=== PATIENT | male | born 1970 | race Caucasian/White ===

== ENCOUNTER 2017-01-04 21:34 | Emergency (ER) | payer MEDICAID ==
[2017-01-04 21:34] VITALS: BMI 32.3
[2017-01-04 22:15] VITALS: BP 150/95; PULSE 66; RESP 16; TEMP 99.2; O2SAT 98
[2017-01-04] MEDS ORDERED: Sodium Chloride 0.9% 1,000 ML IV STA (22:32)
--- NOTE | 2017-01-04 22:35 | ED PDOC ---
HPI: Back Time Seen by Provider: 01/04/17 22:32 Chief Complaint (Nursing): Back Pain Chief Complaint (Provider): back pain with hematuria History Per: Patient History/Exam Limitations: no limitations Onset/Duration Of Symptoms: Days (3) Current Symptoms Are (Timing): Still Present Previous Symptoms: Back Pain (b/l back pain) Associated Symptoms: Other (hematuria and abd pain suprapubic) Exacerbating Factor(s): Movement - Risk Factors AAA Risk Factors: Neg: Older Than 49 Years Of Age, Hypertension, Connective Tissue Disease, Marfan's Syndrome, Theodore-Danlos Syndrome, Prior AAA, 1st Degree Relative/s With AAA Past Medical History Reviewed: Historical Data, Nursing Documentation, Vital Signs Vital Signs: Last Vital Signs Temp 99.2 F 01/04/17 22:11 Pulse 66 01/04/17 22:11 Resp 16 01/04/17 22:11 BP 150/95 H 01/04/17 22:11 Pulse Ox 98 01/04/17 22:11 - Medical History PMH: Back Problems (chronic pain) Denies: Chronic Kidney Disease - Surgical History Surgical History: Appendectomy - Family History Family History: States: Unknown Family Hx - Immunization History Hx Tetanus Toxoid Vaccination: No Hx Influenza Vaccination: No Hx Pneumococcal Vaccination: No - Home Medications Home Medications: Ambulatory Orders Medication Instructions Recorded Ciprofloxacin [Cipro] 250 mg PO BID #14 tab 01/04/17 Ketorolac Tromethamine [Toradol] 10 mg PO TID #20 cap 01/04/17 - Allergies Allergies/Adverse Reactions: Allergies Allergy/AdvReac Type Severity Reaction Status Date / Time No Known Allergies Allergy Verified 07/29/15 07:22 Review of Systems ROS Statement: Except As Marked, All Systems Reviewed And Found Negative Constitutional: Positive for: Chills. Negative for: Fever Gastrointestinal: Positive for: Nausea, Abdominal Pain. Negative for: Vomiting Genitourinary Male: Positive for: Dysuria, Frequency, Hematuria Physical Exam - Reviewed Nursing Documentation Reviewed: Yes Vital Signs Reviewed: Yes - Physical Exam Appears: Positive for: Non-toxic, No Acute Distress, Uncomfortable Head Exam: Positive for: ATRAUMATIC, NORMAL INSPECTION, NORMOCEPHALIC Skin: Positive for: Normal Color, Warm, DRY Cardiovascular/Chest: Positive for: Regular Rate, Rhythm Respiratory: Positive for: CNT, Normal Breath Sounds Gastrointestinal/Abdominal: Positive for: Normal Exam, Bowel Sounds, Soft, Tenderness (suprapubic tenderness) Back: Positive for: L CVA Tenderness, R CVA Tenderness Extremity: Positive for: Normal ROM Neurologic/Psych: Positive for: Alert, Oriented - Laboratory Results Result Diagrams: 01/04/17 22:51 01/04/17 22:51 - ECG O2 Sat by Pulse Oximetry: 98 - Progress ED Course And Treament: UA/ct of abd r/o renal stone cbc/cmp torodol and NS fluids ct scan: 1. Low attenuation lesion in the right hepatic lobe, incompletely characterized on this exam but unchanged. 2. Gallbladder wall is thickened. Small stones are seen in the gallbladder neck. Findings are concerning for acute cholecystitis. 3. Moderate fecal retention in the colon consistent with constipation. 4. Bladder wall is mildly prominent in thickness which may be due to its decompressed state or due to cystitis. 5. Mesenteric lymphadenopathy which is unchanged in indeterminate. Largest lymph node measures 2.8 x 1.6 cm. pt without elvated liver enzymes and no complaints of RUQ/epigastric pain/ vomiting or upper back pain Medical Decision Making Medical Decision Making: blood noted in urine, however no renal stone note don CT scan. GC test sent to r/o STI. pt will be given cipro and cx sent advised to f.u with urology for prostate exam pt will be given torodol PO for pain . stable VS upone d/c Disposition - Clinical Impression Clinical Impression: Cystitis - Patient ED Disposition Is Patient to be Admitted: No Counseled Patient/Family Regarding: Studies Performed, Diagnosis, Need For Followup, Rx Given - Disposition Referrals: [facility] [Outside] Yumiko Conde MD [Medical Doctor] - Disposition: Routine/Home Disposition Time: 23:41 Condition: STABLE Prescriptions: Ciprofloxacin [Cipro] 250 mg PO BID #14 tab Ketorolac Tromethamine [Toradol] 10 mg PO TID #20 cap Instructions: Urinary Tract Infection in Men (ED) Forms: [employer] (Macedonian) Print Language: VIETNAMESE
[2017-01-04 22:50] LABS: SQUAMOUS EPITHIAL 1 /hpf (0-5); URINE BILIRUBIN NEGATIVE (NEGATIVE); URINE BLOOD NEGATIVE (NEGATIVE); URINE CLARITY CLEAR (Clear); URINE COLOR YELLOW (YELLOW); URINE GLUCOSE (UA) NEG (Normal); URINE LEUKOCYTE ESTERASE NEG Leu/uL (Negative); URINE NITRATE NEGATIVE (NEGATIVE); URINE PROTEIN NEGATIVE (NEGATIVE); URINE UROBILINOGEN 0.2-1.0 mg/dL (0.2-1.0)
[2017-01-04 22:56] LABS: BASO # 0.1 K/uL (0.0-0.2); BASO % 1.2 % (0.0-2.0); EOS # 0.1 K/uL (0.0-0.7); EOS % 1.4 % (0.0-4.0); HEMOGLOBIN 14.6 g/dL (12.0-18.0); LYMPH # 2.8 K/uL (1.0-4.3); LYMPH % 35.2 % (20.0-40.0); MEAN CELL VOLUME 89.8 fl (80.0-94.0); MEAN CORPUSCULAR HEMOGLOBIN 30.3 pg (27.0-31.0); MEAN CORPUSCULAR HGB CONC 33.8 g/dL (33.0-37.0); MEAN PLATELET VOLUME 8.5 fl (7.2-11.7); MONO # 0.7 K/uL (0.0-0.8); MONO % 9.2 % (0.0-10.0); NEUT # 4.3 K/uL (1.8-7.0); NRBC % 0.1 % (0.0-0.0); RBC 4.8 Mil/uL (4.40-5.90); RED CELL DISTRIBUTION WIDTH 13.3 % (11.5-14.5)
[2017-01-04 23:05] LABS: ALB/GLOB RATIO 1.4 (1.0-2.1); ALBUMIN 4.7 g/dL (3.5-5.0); ALT/SGPT 44 U/L (21-72); AST/SGOT 44 U/L (17-59); BLOOD UREA NITROGEN 21 mg/dl (9-20); CALCIUM 9.4 mg/dL (8.4-10.2); GFR AFRICAN-AMERICAN > 60; GFR NON-AFRICAN AMERICAN > 60
--- NOTE | 2017-01-05 00:01 | CT ---
EXAM: CT Abdomen and Pelvis Without Intravenous Contrast CLINICAL HISTORY: 46 years old, male; Pain; Abdominal pain; Other: Bilat. Back pain; Prior surgery; Surgery date: 6+ months; Surgery type: Append. Removed; Additional info: CVA tenderness b/l TECHNIQUE: Axial computed tomography images of the abdomen and pelvis without intravenous contrast. This CT exam was performed using one or more of the following dose reduction techniques: automated exposure control, adjustment of the mA and/or kV according to patient size, and/or use of iterative reconstruction technique. Coronal and sagittal reformatted images were created and reviewed. COMPARISON: None FINDINGS: Lower thorax: The bilateral lung bases are clear. ABDOMEN: Liver: No acute findings Gallbladder and bile ducts: No acute finding. No calcified stones. No intra-extrahepatic biliary ductal dilation. Pancreas: Limited evaluation secondary to the lack of intravenous contrast. Spleen: No acute findings. Adrenals: No acute findings. Kidneys and ureters: No obstructing stones. No hydronephrosis. PELVIS: Bladder: No acute findings. Reproductive: No acute findings. Appendix: The appendix is not definitively visualized, however no pericecal inflammatory changes identified to suggest the presence of acute appendicitis. ABDOMEN and PELVIS: Stomach and bowel: No acute findings. Rectosigmoid diverticulosis is detected, without evidence of diverticulitis. Peritoneum: No acute findings. Lymph nodes: Limited evaluation without intravenous contrast. Vasculature: No aortic aneurysm. Bones: No acute fracture. IMPRESSION: No obstructive uropathy. Diverticulosis, without inflammation.
== END 2017-01-04 23:42 | disposition home or self-care (01) ==
LOC: H.ER 21:34
DX: N39.0 Urinary tract infection, site not specified (principal); I10 Essential (primary) hypertension

== ENCOUNTER 2018-04-03 10:40 | Observation (INO) | payer MEDICAID ==
[2018-04-03 10:46] VITALS: BMI 32.5
--- NOTE | 2018-04-03 11:08 | ED PDOC ---
HPI: Chest Pain Time Seen by Provider: 04/03/18 10:54 Chief Complaint (Nursing): Chest Pain Chief Complaint (Provider): Chest pain History Per: Patient History/Exam Limitations: no limitations Onset/Duration Of Symptoms: Hrs (this morning) Quality: Burning, Tightness Associated Symptoms: denies: Dyspnea Additional Complaint(s): Barney Pabon is a 47 year old male, with a past medical history of hypercholesterolemia, who presents to the emergency department for evaluation of chest pain onset this morning. Patient reports a burning sensation and chest tightness across chest into left shoulder and radiates down the left arm. Pain is not associated with exertion. Patient states symptoms improved after he laid down but recurred. He denies any dizziness, palpitations, shortness of breath, fever or chills. No further medical complaints. PMD: [facility] Past Medical History Reviewed: Historical Data, Nursing Documentation, Vital Signs Vital Signs: Last Vital Signs Temp 98.4 F 04/03/18 10:46 Pulse 55 L 04/03/18 10:46 Resp 17 04/03/18 10:46 BP 157/88 H 04/03/18 10:46 Pulse Ox 97 04/03/18 10:46 - Medical History PMH: Back Problems (chronic pain), Hypercholesterolemia Denies: Chronic Kidney Disease - Surgical History Surgical History: Appendectomy - Family History Family History: States: Unknown Family Hx - Social History Current smoker - smoking cessation education provided: No Alcohol: None Drugs: Denies - Immunization History Hx Tetanus Toxoid Vaccination: No Hx Influenza Vaccination: No Hx Pneumococcal Vaccination: No - Home Medications Home Medications: Ambulatory Orders Medication Instructions Recorded Ciprofloxacin [Cipro] 250 mg PO BID #14 tab 01/04/17 Ketorolac Tromethamine [Toradol] 10 mg PO TID #20 cap 01/04/17 - Allergies Allergies/Adverse Reactions: Allergies Allergy/AdvReac Type Severity Reaction Status Date / Time No Known Allergies Allergy Verified 07/29/15 07:22 Review of Systems ROS Statement: Except As Marked, All Systems Reviewed And Found Negative Constitutional: Negative for: Fever, Chills Cardiovascular: Positive for: Chest Pain (radiates to left shoulder and down the arm). Negative for: Palpitations Respiratory: Negative for: Shortness of Breath Neurological: Negative for: Dizziness Physical Exam - Reviewed Nursing Documentation Reviewed: Yes Vital Signs Reviewed: Yes - Physical Exam Appears: Positive for: No Acute Distress Head Exam: Positive for: ATRAUMATIC, NORMAL INSPECTION, NORMOCEPHALIC Skin: Positive for: Normal Color, Warm, Dry Eye Exam: Positive for: Normal appearance, EOMI, PERRL Neck: Positive for: Normal, Painless ROM Cardiovascular/Chest: Positive for: Regular Rate, Rhythm, Chest Non Tender (No chest wall tenderness). Negative for: Murmur Respiratory: Positive for: Normal Breath Sounds. Negative for: Respiratory Di stress Gastrointestinal/Abdominal: Positive for: Normal Exam, Soft. Negative for: Tenderness, Guarding, Rebound Back: Positive for: Normal Inspection. Negative for: L CVA Tenderness, R CVA Tenderness, Vertebral Tenderness Extremity: Positive for: Normal ROM (upper and lower extremities). Negative for: Calf Tenderness, Deformity, Swelling Neurologic/Psych: Positive for: Alert, Oriented. Negative for: Motor/Sensory Deficits - Laboratory Results Result Diagrams: 04/03/18 11:35 04/03/18 12:16 - ECG O2 Sat by Pulse Oximetry: 97 (RA) Pulse Ox Interpretation: Normal Medical Decision Making Medical Decision Making: Time: 10:54 Initial Impression: Chest pain Initial Plan: --CMP --Troponin I --CBC w/ differential --Chest two views (PA/LAT) [RAD] --Aspirin 325 mg PO --Reevaluation Scribe Attestation: Documented by Luis Stark, acting as a scribe for Aleksandr Huynh MD. Provider Scribe Attestation: All medical record entries made by the Scribe were at my direction and personally dictated by me. I have reviewed the chart and agree that the record accurately reflects my personal performance of the history, physical exam, medical decision making, and the department course for this patient. I have also personally directed, reviewed, and agree with the discharge instructions and disposition. Disposition - Clinical Impression Clinical Impression: Chest pain - Patient ED Disposition Is Patient to be Admitted: Yes - Disposition Disposition Time: 12:40 Condition: FAIR Forms: [facility] (German) - Pt Status Changed To: Hospital Disposition Of: Observation - POA Present On Arrival: None
[2018-04-03 11:59] LABS: BASO % 0.7 % (0.0-2.0); EOS # 0.1 K/uL (0.0-0.7); EOS % 1.7 % (0.0-4.0); HEMOGLOBIN 14.4 g/dL (12.0-18.0); LYMPH # 2.4 K/uL (1.0-4.3); LYMPH % 41.6 % (20.0-40.0); MEAN CELL VOLUME 91.9 fl (80.0-94.0); MEAN CORPUSCULAR HEMOGLOBIN 30.4 pg (27.0-31.0); MEAN PLATELET VOLUME 9.2 fl (7.2-11.7); MONO # 0.5 K/uL (0.0-0.8); MONO % 7.8 % (0.0-10.0); NEUT # 2.8 K/uL (1.8-7.0); NEUT % 48.2 % (50.0-75.0); NRBC % 0.1 % (0.0-0.0); RBC 4.73 Mil/uL (4.40-5.90); RED CELL DISTRIBUTION WIDTH 13.1 % (11.5-14.5); WHITE BLOOD COUNT 5.8 K/uL (4.8-10.8)
[2018-04-03 12:41] LABS: ALB/GLOB RATIO 1.2 (1.0-2.1); ALBUMIN 4.6 g/dL (3.5-5.0); ALT/SGPT 49 U/L (21-72); AST/SGOT 31 U/L (17-59); BLOOD UREA NITROGEN 14 mg/dl (9-20); GFR NON-AFRICAN AMERICAN > 60
--- NOTE | 2018-04-03 14:38 | RAD ---
Date of service: 04/03/2018 HISTORY: Chest pain COMPARISON: Chest radiographs 07/29/2015. TECHNIQUE: Chest PA and lateral FINDINGS: LUNGS: No active pulmonary disease. PLEURA: No significant pleural effusion identified. No pneumothorax apparent. CARDIOVASCULAR: No aortic atherosclerotic calcification present. Normal cardiac size. No pulmonary vascular congestion. OSSEOUS STRUCTURES: No significant abnormalities. VISUALIZED UPPER ABDOMEN: Normal. OTHER FINDINGS: None. IMPRESSION: No interval acute cardiopulmonary disease appreciated.
[2018-04-03 17:55] LABS: PROTHROMBIN TIME 11.8 Seconds (9.8-13.1)
[2018-04-03 17:58] LABS: PARTIAL THROMBOPLASTIN TIME 30.3 Seconds (25.6-37.1)
[2018-04-03 18:18] LABS: D DIMER < 200 ng/mlDDU (0-230)
[2018-04-03 19:55] LABS: BARBITURATES, UR NEGATIVE (NEGATIVE); BENZODIAZEPINES, UR NEGATIVE (NEGATIVE); OPIATES, UR NEGATIVE (NEGATIVE); PHENCYCLIDINE, UR NEGATIVE (NEGATIVE)
[2018-04-03] MEDS: Omega-3-Acid Ethyl Esters 1 GM Cap PO SCH (21:30)
[2018-04-03] MEDS: Enoxaparin 100 mg Syringe SC SCH (21:31)
[2018-04-03] MEDS ORDERED: Pneumococcal 23-Valent Vaccine IM ONE (23:19)
--- NOTE | 2018-04-04 07:23 | CON ---
DATE: 04/03/2018 HISTORY OF PRESENT ILLNESS: The patient is a 47-year-old male who has no significant past medical history, presents because of retrosternal chest pain radiating to the left shoulder and left arm last evening and subsequently waking him up from sleep after midnight. The patient did report retrosternal burning sensation prior to that. Denies any associated diaphoresis and is unaware of any prior cardiac history. SOCIAL HISTORY: The patient is a nonsmoker, nondrinker. MEDICATIONS: The patient received aspirin 325 mg in the emergency room. He is on omega-3 fatty acid and Lipitor at home for hyperlipidemia. REVIEW OF SYSTEMS: No fever or chills. No nausea or vomiting. PHYSICAL EXAMINATION: GENERAL: The patient is a middle-aged male who does not appear to be in acute distress. VITAL SIGNS: Blood pressure 157/88, heart rate 55, temperature 98.4, respirations 17. HEENT: Normocephalic. NECK: No JVD. CHEST: Clear. HEART: S1 and S2 regular. ABDOMEN: Soft. EXTREMITIES: No edema. IMAGING DATA: EKG reveals normal sinus rhythm. LABORATORY DATA: Today's SMA-7 is within normal limit. One set of troponin is negative. Today's hemoglobin and hematocrit, white count and platelet count are within normal limit. Chest x-ray was unremarkable. ASSESSMENT: 1. Chest pain, myocardial infarction was ruled out. 2. Hyperlipidemia. 3. Hypertension. RECOMMENDATIONS: Admit the patient to Telemetry. Start subcutaneous Lovenox and start aspirin 81 mg once a day, Plavix 75 mg once a day. Obtain serum D-dimer as well as . Schedule the patient for an echocardiogram. Cardiac catheterization will be considered. Nestor Vieira MD
--- NOTE | 2018-04-04 10:32 | CP.PCM.HP ---
History of Present Illness - History of Present Illness History of Present Illness: 47 y/o M with a PMHx of HLD presented to ED complaining of sudden constant severe chest pain that started yesterday morning. Pt described pain as tightness bellow his chest that radiated to L arm. Pain seemed to alleviate after lying d own. No ill contacts. No recent travel. Pt denies fever, chills, dizziness, SOB, wheezing or nausea. --Today, pt was evaluated and examined by bedside with Dr Patton. Pt reports feeling better, no more chest pain at this moment, he described episode of pain scared him significantly. Pt afebrile, tolerating PO. PMD: [facility] ED [place]: -CBC was WNL, CMP unremarkable, troponin negative x3, UDS negative. -CXR-no acute cardiopulmonary disease appreciate. -EKG-preliminary: NSR at 60bpm, normal EKG Present on Admission - Present on Admission Any Indicators Present on Admission: No Review of Systems - Constitutional Constitutional: absent: Anorexia, Chills - EENT Eyes: absent: Change in Vision Nose/Mouth/Throat: absent: Nasal Congestion, Sore Throat, Neck Pain - Cardiovascular Cardiovascular: Chest Pain. absent: Chest Pain at Rest, Leg Edema, Palpitations, Paroxysmal Nocturnal Dyspnea - Respiratory Respiratory: absent: Cough, Dyspnea, Hemoptysis - Gastrointestinal Gastrointestinal: absent: Abdominal Pain, Diarrhea, Hematemesis, Hematochezia - Genitourinary Genitourinary: absent: Dysuria, Flank Pain, Hematuria Past Patient History - Past Medical History & Family History Past Medical History?: Yes - Past Social History Smoking Status: Never Smoked - CARDIAC Hx Hypercholesterolemia: Yes - PULMONARY Hx Respiratory Disorders: No - NEUROLOGICAL Hx Neurological Disorder: No - HEENT Hx HEENT Problems: No - RENAL Hx Chronic Kidney Disease: No - ENDOCRINE/METABOLIC Hx Endocrine Disorders: No - HEMATOLOGICAL/ONCOLOGICAL Hx Blood Disorders: No Hx AIDS: No Hx Human Immunodeficiency Virus (HIV): No - INTEGUMENTARY Hx Dermatological Problems: No - MUSCULOSKELETAL/RHEUMATOLOGICAL Hx Musculoskeletal Disorders: No Hx Falls: No - GASTROINTESTINAL Hx Gastrointestinal Disorders: No - GENITOURINARY/GYNECOLOGICAL Hx Genitourinary Disorders: Yes Other/Comment: urethral stricture - PSYCHIATRIC Hx Psychophysiologic Disorder: No Hx Substance Use: No - SURGICAL HISTORY Hx Appendectomy: Yes - ANESTHESIA Hx Anesthesia: Yes Hx Anesthesia Reactions: No Hx Malignant Hyperthermia: No Meds Allergies/Adverse Reactions: Allergies Allergy/AdvReac Type Severity Reaction Status Date / Time No Known Allergies Allergy Verified 07/29/15 07:22 Physical Exam - Constitutional Appears: Well, No Acute Distress - Head Exam Head Exam: ATRAUMATIC, NORMAL INSPECTION - Eye Exam Eye Exam: EOMI, Normal appearance - ENT Exam ENT Exam: Mucous Membranes Dry, Normal Oropharynx - Neck Exam Neck exam: Positive for: Full Rom. Negative for: Lymphadenopathy, Tenderness - Respiratory Exam Respiratory Exam: NORMAL BREATHING PATTERN. absent: Rhonchi, Wheezes - Cardiovascular Exam Cardiovascular Exam: REGULAR RHYTHM, +S1, +S2 - GI/Abdominal Exam GI & Abdominal Exam: Normal Bowel Sounds, Soft. absent: Tenderness - Extremities Exam Extremities exam: Positive for: full ROM, normal inspection. Negative for: calf tenderness, joint swelling, pedal edema - Back Exam Back exam: absent: CVA tenderness (L), CVA tenderness (R) - Neurological Exam Neurological exam: Alert, Oriented x3 Results - Vital Signs Recent Vital Signs: Last Vital Signs Temp 97.8 F 04/04/18 08:00 Pulse 63 04/04/18 08:00 Resp 18 04/04/18 08:00 BP 133/85 04/04/18 08:00 Pulse Ox 97 04/04/18 08:00 - Labs Result Diagrams: 04/03/18 11:35 04/03/18 12:16 Labs: Laboratory Results - last 24 hr 04/03/18 04/03/18 04/03/18 11:35 12:16 17:30 WBC 5.8 RBC 4.73 Hgb 14.4 Hct 43.5 MCV 91.9 D MCH 30.4 MCHC 33.0 RDW 13.1 Plt Count 201 MPV 9.2 Neut % (Auto) 48.2 L Lymph % (Auto) 41.6 H [place] % (Auto) 7.8 Eos % (Auto) 1.7 Baso % (Auto) 0.7 Neut # (Auto) 2.8 Lymph # (Auto) 2.4 [place] # (Auto) 0.5 Eos # (Auto) 0.1 Baso # (Auto) 0.0 PT 11.8 INR 1.0 APTT 30.3 D-Dimer, Quantitative < 200 Sodium 141 Potassium 4.2 Chloride 106 Carbon Dioxide 23 Anion Gap 16 BUN 14 Creatinine 0.8 Est GFR ( Amer) > 60 Est GFR (Non-Af Amer) > 60 Random Glucose 91 Calcium 10.0 Total Bilirubin 0.7 AST 31 ALT 49 Alkaline Phosphatase 62 Troponin I < 0.0120 Total Protein 8.5 H Albumin 4.6 Globulin 3.8 Albumin/Globulin Ratio 1.2 Urine Opiates Screen Urine Methadone Screen Ur Barbiturates Screen Ur Phencyclidine Scrn Ur Amphetamines Screen U Benzodiazepines Scrn U Oth Cocaine Metabols U Cannabinoids Screen 04/03/18 04/03/18 04/04/18 19:20 19:59 04:20 WBC RBC Hgb Hct MCV MCH MCHC RDW Plt Count MPV Neut % (Auto) Lymph % (Auto) [place] % (Auto) Eos % (Auto) Baso % (Auto) Neut # (Auto) Lymph # (Auto) [place] # (Auto) Eos # (Auto) Baso # (Auto) PT INR APTT D-Dimer, Quantitative Sodium Potassium Chloride Carbon Dioxide Anion Gap BUN Creatinine Est GFR ( Amer) Est GFR (Non-Af Amer) Random Glucose Calcium Total Bilirubin AST ALT Alkaline Phosphatase Troponin I < 0.0120 < 0.0120 Total Protein Albumin Globulin Albumin/Globulin Ratio Urine Opiates Screen Negative Urine Methadone Screen Negative Ur Barbiturates Screen Negative Ur Phencyclidine Scrn Negative Ur Amphetamines Screen Negative U Benzodiazepines Scrn Negative U Oth Cocaine Metabols Negative U Cannabinoids Screen Negative Assessment & Plan - Assessment and Plan (Free Text) Assessment: 47 y/o M with a PMHx HLD admitted for evaluation of chest pain, rule out acute coronary syndrome. PLAN: --Bradycardia, afebrile, tolerating PO --Aspirin PO daily --Echocardiogram --Serum TSH due to bradycardia and obesity. --Cardiology consult, Dr Vieira. --Home medication resumed. --Pneumo vaccine --Continue management as ordered. Case discussed with Dr Abdi Chou, PGY-2
[2018-04-04] MEDS: Multivitamin With Minerals Tab PO SCH (10:43)
[2018-04-04] MEDS: Omega-3-Acid Ethyl Esters 1 GM Cap PO SCH ×2 (10:43→17:02)
[2018-04-04] MEDS: Enoxaparin 100 mg Syringe SC SCH (10:43)
--- NOTE | 2018-04-04 17:23 | PN ---
DATE: 04/04/2018 SUBJECTIVE: The patient denied any chest pain or arm pain, no dizziness or diaphoresis. PHYSICAL EXAMINATION VITAL SIGNS: Blood pressure 132/85, heart rate 63, temperature 97.8, respirations 18. HEENT: Normocephalic. CHEST: Clear. HEART: S1, S2 regular. EXTREMITIES: No edema. LABORATORY DATA: Three sets of troponin are negative and D-dimer also within normal limits. Urine drug screen is negative. ASSESSMENT AND PLAN: 1. Chest pain, myocardial function is ruled out. 2. Hypertension. 3. Hyperlipidemia. RECOMMENDATIONS: Continue current aspirin 81 mg once daily, Lipitor 80 mg once a day. The patient will undergo echocardiographc study, which I will review today prior to scheduling the patient for either stress test or cardiac cath. Nestor Vieira MD
--- NOTE | 2018-04-04 18:21 | CARD ---
APPROVED REPORT Date of service: 04/04/2018 EXAM: Two-dimensional and M-mode echocardiogram with Doppler and color Doppler. Other Information Quality : GoodRhythm : NSR INDICATION Chest Pain 2D DIMENSIONS IVSd0.98 (0.7-1.1cm)LVDd5.18 (3.9-5.9cm) LVOT Diameter2.52 (1.8-2.4cm)PWd0.92 (0.7-1.1cm) IVSs1.39 (0.8-1.2cm)LVDs3.36 (2.5-4.0cm) FS (%) 35.0 %PWs1.38 (0.8-1.2cm) M-Mode DIMENSIONS Left Atrium (MM)3.65 (2.5-4.0cm)IVSd1.06 (0.7-1.1cm) Aortic Root3.85 (2.2-3.7cm)LVDd6.06 (4.0-5.6cm) Aortic Cusp Exc.2.12 (1.5-2.0cm)PWd1.06 (0.7-1.1cm) IVSs1.47 cmFS (%) 34 % LVDs4.00 (2.0-3.8cm)PWs1.79 cm Aortic Valve AoV Peak Qespysib002.6cm/sAoV VTI32.8cmAO Peak GR.9mmHg LVOT Peak Lgeiimcz17.0cm/sLVOT VTI20.52cmAO Mean GR.5mmHg [place] (VMAX)1.23nz7CER (VTI)1.36cm2 Mitral Valve MV E Vvipjvnc21.7cm/sMV DECEL OOUP351qaOM A Jrgczhji21.9cm/s MV UZG78rnK/A ratio1.2MVA (PHT)3.10cm2 TDI Lateral E' Peak V10.59cm/sMedial E' Peak V9.13cm/sE/Lateral E'6.5 E/Medial E'7.5 Pulmonary Valve PV Peak Iccbsdbp66.1cm/s LEFT VENTRICLE The left ventricle is normal size. There is normal left ventricular wall thickness. The left ventricular systolic function is normal. The estimated ejection fraction is 55-60% No regional wall motion abnormalities noted.. The left ventricular diastolic function is normal. No left ventricle thrombus noted on this study. There is no ventricular septal defect visualized. There is no left ventricular aneurysm. There is no mass noted in the left ventricle. RIGHT VENTRICLE The right ventricle is normal size. There is normal right ventricular wall thickness. The right ventricular systolic function is normal. ATRIA The left atrium size is normal. The right atrium size is normal. The interatrial septum is intact with no evidence for an atrial septal defect. AORTIC VALVE The aortic valve is normal in structure. No aortic regurgitation is present. There is no aortic valvular stenosis. There is no aortic valvular vegetation. MITRAL VALVE The mitral valve is normal in structure. There is no evidence of mitral valve prolapse. There is no mitral valve stenosis. There is mild mitral valve regurgitation noted. TRICUSPID VALVE The tricuspid valve is normal in structure. There is trivial tricuspid valve regurgitation noted. There is no tricuspid valve prolapse or vegetation. There is no tricuspid valve stenosis. PULMONIC VALVE The pulmonary valve is normal in structure. There is no pulmonic valvular regurgitation. There is no pulmonic valvular stenosis. GREAT VESSELS The aortic root is normal in size. The ascending aorta is normal in size. The pulmonary artery is normal. The IVC is normal in size and collapses >50% with inspiration. PERICARDIAL EFFUSION There is no pericardial effusion. There is no pleural effusion. <Conclusion> The estimated ejection fraction is 55-60% The left ventricular diastolic function is normal. The left atrium size is normal. There is mild mitral valve regurgitation noted. There is trivial tricuspid valve regurgitation noted.
--- NOTE | 2018-04-04 18:23 | CARD ---
APPROVED REPORT Date of service: 04/04/2018 EKG Measurement Heart [id number] <Conclusion> Sinus bradycardia Otherwise normal ECG
[2018-04-05] MEDS: Lidocaine 5% Patch TD SCH ×2 (06:04→10:23)
[2018-04-05 08:44] VITALS: BP 116/78; RESP 18; TEMP 97.9; O2SAT 98
[2018-04-05] MEDS ORDERED: Lidocaine 5% Patch TD SCH (09:00)
[2018-04-05] MEDS: Multivitamin With Minerals Tab PO SCH (10:22)
[2018-04-05] MEDS: Omega-3-Acid Ethyl Esters 1 GM Cap PO SCH (10:22)
[2018-04-05 12:44] VITALS: PULSE 48
--- NOTE | 2018-04-05 15:20 | CP.PCM.DIS ---
Provider - Provider Date of Admission: 04/03/18 12:37 Attending physician: Zeeshan Thompson MD Primary care physician: Nikhil Gibson Consults: Cardiology: Dr Vieira Time Spent in preparation of Discharge (in minutes): 25 Diagnosis - Discharge Diagnosis (1) Chest pain Status: Acute Comment: -F/U with PCP and cardiology as outpatient. Hospital Course - Lab Results Lab Results: Most Recent Lab Values WBC 5.8 K/uL (4.8-10.8) 04/03/18 11:35 RBC 4.73 Mil/uL (4.40-5.90) 04/03/18 11:35 Hgb 14.4 g/dL (12.0-18.0) 04/03/18 11:35 Hct 43.5 % (35.0-51.0) 04/03/18 11:35 MCV 91.9 fl (80.0-94.0) D 04/03/18 11:35 MCH 30.4 pg (27.0-31.0) 04/03/18 11:35 MCHC 33.0 g/dL (33.0-37.0) 04/03/18 11:35 RDW 13.1 % (11.5-14.5) 04/03/18 11:35 Plt Count 201 K/uL (130-400) 04/03/18 11:35 MPV 9.2 fl (7.2-11.7) 04/03/18 11:35 Neut % (Auto) 48.2 % (50.0-75.0) L 04/03/18 11:35 Lymph % (Auto) 41.6 % (20.0-40.0) H 04/03/18 11:35 [place] % (Auto) 7.8 % (0.0-10.0) 04/03/18 11:35 Eos % (Auto) 1.7 % (0.0-4.0) 04/03/18 11:35 Baso % (Auto) 0.7 % (0.0-2.0) 04/03/18 11:35 Neut # (Auto) 2.8 K/uL (1.8-7.0) 04/03/18 11:35 Lymph # (Auto) 2.4 K/uL (1.0-4.3) 04/03/18 11:35 [place] # (Auto) 0.5 K/uL (0.0-0.8) 04/03/18 11:35 Eos # (Auto) 0.1 K/uL (0.0-0.7) 04/03/18 11:35 Baso # (Auto) 0.0 K/uL (0.0-0.2) 04/03/18 11:35 PT 11.8 Seconds (9.8-13.1) 04/03/18 17:30 INR 1.0 04/03/18 17:30 APTT 30.3 Seconds (25.6-37.1) 04/03/18 17:30 D-Dimer, Quantitative < 200 ng/mlDDU (0-230) 04/03/18 17:30 Sodium 141 mmol/l (132-148) 04/03/18 12:16 Potassium 4.2 MMOL/L (3.6-5.0) 04/03/18 12:16 Chloride 106 mmol/L (98-107) 04/03/18 12:16 Carbon Dioxide 23 mmol/L (22-30) 04/03/18 12:16 Anion Gap 16 (10-20) 04/03/18 12:16 BUN 14 mg/dl (9-20) 04/03/18 12:16 Creatinine 0.8 mg/dl (0.8-1.5) 04/03/18 12:16 Est GFR ( Amer) > 60 04/03/18 12:16 Est GFR (Non-Af Amer) > 60 04/03/18 12:16 POC Glucose (mg/dL) 88 mg/dL (65-110) 04/05/18 05:13 Random Glucose 91 mg/dL (75-110) 04/03/18 12:16 Calcium 10.0 mg/dL (8.4-10.2) 04/03/18 12:16 Total Bilirubin 0.7 mg/dl (0.2-1.3) 04/03/18 12:16 AST 31 U/L (17-59) 04/03/18 12:16 ALT 49 U/L (21-72) 04/03/18 12:16 Alkaline Phosphatase 62 U/L (38-126) 04/03/18 12:16 Troponin I < 0.0120 ng/mL (0.00-0.120) 04/04/18 04:20 Total Protein 8.5 G/DL (6.3-8.2) H 04/03/18 12:16 Albumin 4.6 g/dL (3.5-5.0) 04/03/18 12:16 Globulin 3.8 gm/dL (2.2-3.9) 04/03/18 12:16 Albumin/Globulin Ratio 1.2 (1.0-2.1) 04/03/18 12:16 TSH 3rd Generation 2.27 mIU/ML (0.46-4.68) 04/04/18 09:51 Urine Opiates Screen Negative (NEGATIVE) 04/03/18 19:20 Urine Methadone Screen Negative (NEGATIVE) 04/03/18 19:20 Ur Barbiturates Screen Negative (NEGATIVE) 04/03/18 19:20 Ur Phencyclidine Scrn Negative (NEGATIVE) 04/03/18 19:20 Ur Amphetamines Screen Negative (NEGATIVE) 04/03/18 19:20 U Benzodiazepines Scrn Negative (NEGATIVE) 04/03/18 19:20 U Oth Cocaine Metabols Negative (NEGATIVE) 04/03/18 19:20 U Cannabinoids Screen Negative (NEGATIVE) 04/03/18 19:20 - Hospital Course Hospital Course: 47 y/o M with a PMHx of HLD was admitted due to sudden constant severe chest pain. -CBC was WNL, CMP unremarkable, troponin negative x3, UDS negative. -CXR-no acute cardiopulmonary disease appreciate. -EKG-preliminary: NSR at 60bpm, normal EKG -Echocardiogramwas unremarkable with EF 55-60%. -Pt was evaliated by aboriginal education worker coordinator, Dr Vieira, ACS ruled out. Pt was seen and examined with Dr Church. Pt was walking around with NO complaints. Pt stable, afebrile, tolaring PO will be discharged with Rx for Aspirin 81mg daily and Lipitor 80mg daily. Pt isntructed to f/u with PCP and aboriginal education worker coordinator for further investigation. pt educated on the possiblity of cardiac stress test. - Date & Time of H&P Date of H&P: 04/04/18 Time of H&P: 10:23 Discharge Exam - Head Exam Head Exam: ATRAUMATIC, NORMAL INSPECTION - Additional Findings Additional findings: - Constitutional Appears: Well, No Acute Distress - Head Exam Head Exam: ATRAUMATIC, NORMAL INSPECTION - Eye Exam Eye Exam: EOMI, Normal appearance - ENT Exam ENT Exam: Mucous Membranes Dry, Normal Oropharynx - Neck Exam Neck exam: Positive for: Full Rom. Negative for: Lymphadenopathy, Tenderness - Respiratory Exam Respiratory Exam: NORMAL BREATHING PATTERN. absent: Rhonchi, Wheezes - Cardiovascular Exam Cardiovascular Exam: REGULAR RHYTHM, +S1, +S2 - GI/Abdominal Exam GI & Abdominal Exam: Normal Bowel Sounds, Soft. absent: Tenderness - Extremities Exam Extremities exam: Positive for: full ROM, normal inspection. Negative for: calf tenderness, joint swelling, pedal edema - Back Exam Back exam: absent: CVA tenderness (L), CVA tenderness (R) - Neurological Exam Neurological exam: Alert, Oriented x3 Discharge Plan - Discharge Medications Prescriptions: Aspirin [Aspirin Chewable] 81 mg PO DAILY #30 chew Atorvastatin [Lipitor] 80 mg PO DAILY #30 tab Lidocaine 5% [Lidoderm] 1 ea TD DAILY #14 patch - Follow Up Plan Condition: FAIR Disposition: HOME/ ROUTINE Instructions: Heart Healthy Diet, Chest Pain (DC) Referrals: Gonzalo Ko MD [Family Provider] - Camille Diaz MD [Staff Provider] -
== END 2018-04-05 13:00 | disposition home or self-care (01) ==
LOC: H.ER 10:40 → H.ERHOLD 12:37 → H.TEL 22:35
PROVIDERS: ADMIT Family Medicine; ATTEND Family Medicine
DX: R07.89 Other chest pain (principal); E78.00 Pure hypercholesterolemia, unspecified; E78.5 Hyperlipidemia, unspecified; I10 Essential (primary) hypertension; Z23 Encounter for immunization; E66.9 Obesity, unspecified; Z68.32 Body mass index [BMI] 32.0-32.9, adult; R00.1 Bradycardia, unspecified
CPT/HCPCS: 36415; 71046; 80053; 80324; 80345; 80346; 80349; 80353; 80358; 80361; 82948; 83992; 84443; 84484; 85025; 85378; 85610; 85730; 90471; 90732; 93005; 93306; 96372; 99285; G0378; J1650